=== PATIENT | male | born 1945 | race Caucasian/White ===

== ENCOUNTER 2016-09-03 12:38 | Inpatient (IN) | payer OTHER, MEDICARE ==
[2016-09-03] VITALS (10 sets, daily range): BP systolic 50–129; BP diastolic 28–90; PULSE 40–108; RESP 16–28; TEMP 93.5–97.2; O2SAT 0–100
[~2016-09-03] VITALS: Ht 175.3 cm; Wt 95.0 kg
[~2016-09-03 12:38] MED LIST: DOPamine INJ PREMIX 500 ML IV ONE; EPINEPHrine HCL (1:10,000) 1 MG/10 ML SYRINGE IV ONE
[2016-09-03] MEDS ORDERED: ASPIRIN 300 MG SUPP RECTAL ONE ×2 (12:42→13:00)
[2016-09-03] MEDS ORDERED: ATROPINE SULFATE 1 MG/ML VIAL ONE (12:42)
[2016-09-03] MEDS ORDERED: PHENYLEPHRINE HCL 10 MG/ML VIAL ONE ×2 (12:46→12:49)
[2016-09-03] MEDS ORDERED: PHENYLEPH/NS 1000 MCG/10 ML SYR ONE (12:47)
[2016-09-03] MEDS ORDERED: HEPARIN-NS/PF INJ 500 ML ONE (12:48)
[2016-09-03] MEDS ORDERED: TIROFIBAN INFUSION INJ 250 ML IV ONE (12:49)
[2016-09-03] MEDS ORDERED: MIDAZOLAM HCL 2 MG/2 ML VIAL ONE (12:49)
[2016-09-03] MEDS ORDERED: SODIUM CHLOR 0.9% 1000 ML INJ 1,000 ML IV ONE (12:55)
[2016-09-03] MEDS ORDERED: HEPARIN SODIUM - IV 10,000 UNITS/10 ML VIAL IV STA (12:55)
[2016-09-03 12:57] LABS: MEAN CORPUSCULAR HGB CONC 28.3 % (32.0-36.0)
[2016-09-03] MEDS ORDERED: SODIUM CHLORIDE 0.9% FLUSH 10 ML FLUSH IVF PRN (13:00)
[2016-09-03] MEDS ORDERED: DOPamine INJ PREMIX 500 ML ONE ×2 (13:01→15:55)
[2016-09-03 13:06] LABS: AUTOMATED NEUTROPHIL # 9.3 TH/MM3 (1.8-7.7); BASOPHIL # 0.1 TH/MM3 (0-0.2); BASOPHIL % 0.5 % (0.0-2.0); LYMPH % 20.5 % (9.0-44.0); LYMPHOCYTE # 2.6 TH/MM3 (1.0-4.8); MEAN CELL VOLUME 90.6 FL (80.0-100.0); MEAN CORPUSCULAR HEMOGLOBIN 25.6 PG (27.0-34.0); MONO % 6.4 % (0.0-8.0); NEUT % 72.6 % (16.0-70.0); PLATELET COUNT 242 TH/MM3 (150-450); RED BLOOD COUNT 1.35 MIL/MM3 (4.50-5.90); RED CELL DISTRIBUTION WIDTH 18.3 % (11.6-17.2); WHITE BLOOD COUNT 12.9 TH/MM3 (4.0-11.0)
[2016-09-03 13:08] LABS: HEMO FLAGS AUTO DIFF; I-STAT POTASSIUM 3.8 MMOL/L (3.5-4.9); I-STAT SODIUM 142 MMOL/L (138-146)
[2016-09-03 13:10] LABS: HEMATOCRIT 12.2 % (39.0-51.0)
[2016-09-03] MEDS ORDERED: EPINEPHrine HCL (1:1000) 1 MG/ML VIAL ONE ×2 (13:13→16:18)
[2016-09-03 13:16] LABS: APTT (PATIENT) 41.4 SEC (24.3-30.1); INTERNATIONAL NORMALIZED RATIO 1.1 RATIO; PROTHROMBIN TIME - PATIENT 12.7 SEC (9.8-11.6)
--- NOTE | 2016-09-03 13:29 | CATHPROC ---
[facility] HIS Report Study Information Study Number Admission Scheduled Start Study Start 0850-17 09/03/2016 09/03/2016 Sep 03 2016 12:50PM Study Type [place] [facility]CA Cardiac Catheterization Referring Institution Admit Source Facility Department 1 Emergency department [facility] - Oracle Developer Physician and Clinical Staff Initial Anival Mcgee Night Patrol Inspector Bob Becerril,RN Recorder Danita Hinojosa,RT(R) Scrub Audrey Merino,PLAQUE MAKER TECH2 Equipment Time Hplc Chemist Description Size Mfg Part Number Used/Scraped TRANSDUCER, TRUWAVE 12:56 KUO MONTENEGRO * [id number] Used W/STOCKCOCK 12:56 MEDLINE [employer] PACK, CCL CUSTOM * [id number] Used 12:56 RV ID PACER PEN, SKIN DUAL W/ RULER * [id number] Used [id number] 12:56 POWWOW MEDICAL SHEATH, FR6.5 PRELUDE 11CM FR 6.5 Used [id number] 12:56 Shoop WIRE, 3MMJ .035 180CM 180CM [id number] Used 12:56 NAMIC MANIFOLD, 4 PORT * [id number] Used 12:56 NYCOMED OMNIPAQUE, 350 MG, 100ML 100ML [id number] Used 12:56 Youmiam MEDICAL BLANKET,WARM AIR CCL * [id number] Used Labs Hgb (g/dl) Hct (%) WBC (l/cumm) Platelets (thousands) 12.00-18.00 37.00-55.00 4.80-10.80 140.00-450.00 3.4 12.2 12.9 242 Glucose (mg/dl) BUN (mg/dl) Creatinine (mg/dl) BUN:Creatinine (1:x) 60.00-110.00 8.00-20.00 0.10-9.00 10.00-20.00 303 30 1.9 15.8 Na (meq/l) K (meq/l) Cl (meq/l) 138.00-146.00 3.80-5.10 101.00-111.00 142 3.8 112 Medication Medication Total Dose (Bolus/Oral) Medication Total Dosage/Unit EPINEPHRINE 05/999 0.6 mg Medications (Bolus/Oral) Medication Time Given Dosage/Unit Administered By Reason EPINEPHRINE 05/99909/03/2016 1:06:52 PM 0.3 mg Bob Becerril 0.3 mg EPINEPHRINE 05/999 given by Bob Becerril RN via Peripheral IV. EPINEPHRINE 05/999 09/03/2016 1:10:28 PM 0.3 mg Bob Becerril 0.3 mg EPINEPHRINE 05/999 given by Bob Becerril RN via Peripheral IV. Chronological Log Time Study Chronological Log 13:03:23 Patient arrived via Bed. 13:03:24 Patient Name, D.O.B, / Armband Verified By R.N. 13:03:26 Pre-op and post- op instructions given; patient acknowledges understanding of instructions. Verbal Stimulation=~VERBAL~ Physical Stimulation=~PHYSICAL~ Airway=~AIRWAY~ Respiration=~RESPIR ATION~ 13:03:26 TOTAL=~TOTAL~. (0=absent, 1=limited, 2=present) 13:03:30 Skin Breakdown. 13:03:30 Patient Warmer Placed on the Table. 13:03:31 Disposable Defibrillator Pads Placed On Patient. 13:03:33 A # 20 IV was noted in the Antecubital (right). Grade = 0 13:03:35 A # ~SIZE~ IV was noted in the Radial (right). Grade = 0 SALOMÓN 13:03:45 DOPAMINE STARTED WIDE OPENED 13:06:24 CPR STARTED 13:06:52 0.3 mg EPINEPHRINE 05/999 given by Bob Becerril RN via Peripheral IV. 13:07:04 PT ARRIVED INTUBATED 13:07:18 CPR continues 13:07:40 SALOMÓN CONNECTED 13:07:49 CPR stopped 13:07:52 PT HAS PULSE Vitals capture started with the following parameters, Patient=Adult, Interval=5 min, Initial Pr avubli=550 mmHg, 13:08:24 Deflation Rate=5 mmHg 13:09:55 HR=56 bpm, UKOX=907/52 mmhg, Resp=13 B/min 13::28 0.3 mg EPINEPHRINE 05/999 given by Bob Becerril RN via Peripheral IV. 13:11:13 Vitals capture stopped. Vitals capture started with the following parameters, Patient=Adult, Interval=5 min, Initial Pr aoivph=649 mmHg, ::25 Deflation Rate=5 mmHg 13::27 NIBP STAT measurement started. 13:12:29 HR=41 bpm, NIBP=91/43 mmhg, Resp=27 B/min, Pato=1 13:12:50 LAB VALUES HEMOGLOBIN 3.4 CREATININE 1.9 13:15:02 NIBP STAT measurement started. 13:15:34 Reference ECG taken 13:16:08 RU=721 bpm, NIBP=96/74 mmhg, Resp=31 B/min, Pato=1 PT LEAVING BLADE BENDER FURNACE TENDER 13:16:53 GOING BACK TO ER DECISION MADE BY ER PHYSICIAN (DR STEWART) AND DR RAMOS 13:17:38 JLIM=661/129 mmhg, SpO2=76.0 %, Pato=1, Camacho=6 13:19:58 Vitals capture stopped. 13:22:41 A # 20 IV was noted in the Antecubital (right). Grade = 0 13:24:47 CASE CANCELLED-PER DR RAMOS/DR ANDREWS 13:26:17 SEE ER CODE SHEET FOR TIMES AND MEDS End Study - Contrast Media Used In Study Contrast Total Opened (mL) Total Used (mL) Total Wasted (mL) Unspecified 0 0 0 End Study - Maximum Contrast Load Max Contrast Load (mL) 179.4 End Study - Radiation Exposure Fluoro Time (minutes) 0.0 End Study - Patient Disposition Complications No
[2016-09-03 13:39] LABS: BANDS 3 % (0-6); CORRECTED NUCLEATED RBC 4 /100 WBC (0-0); METAMYELOCYTES 1 % (0-1); MYELOCYTES 2 % (0-0); NEUTROPHIL # MANUAL DIFF 10.1 TH/MM3 (1.8-7.7); POLYS (SEG NEUTROPHILS) 72 % (16-70); WBC DIFF SAMPLE 100
[2016-09-03 13:41] LABS: BURR CELLS 1+ (NORMAL); KERATOCYTES OCC (NORMAL); MAGNESIUM 2.9 MG/DL (1.5-2.5); PLATELET ESTIMATE SMEAR NORMAL (NORMAL); PLATELET MORPHOLOGY NORMAL (NORMAL); SCAN/DIFF FINAL DIFF MANUAL
[2016-09-03 13:42] LABS: HEMATOCRIT 12.9 % (39.0-51.0)
[2016-09-03 13:44] LABS: CREATINE KINASE 408 U/L (39-308)
--- NOTE | 2016-09-03 13:51 | RADRPT ---
EXAM DATE/TIME: 09/03/2016 12:41 [facility] COMPARISON: No previous studies available for comparison. INDICATIONS : Stemi alert. MEDICAL HISTORY : Unobtainable. SURGICAL HISTORY : Unobtainable. ENCOUNTER: Initial ACUITY: 1 day PAIN SCORE: Non-responsive. LOCATION: Bilateral chest FINDINGS: A single view of the chest demonstrates the lungs to be symmetrically aerated without evidence of mas s, infiltrate or effusion. The cardiomediastinal contours are unremarkable. Osseous structures are intact. CONCLUSION: Normal examination. Guilherme Johnson Jr., MD on September 03, 2016 at 13:49 Board Certified Radiologist. This report was verified electronically.
[2016-09-03] MEDS ORDERED: PANTOPRAZOLE INJ 80 MG in SODIUM CHLORIDE 0.9% INJ 100 ML IV SCH (14:00)
[2016-09-03] MEDS ORDERED: PANTOPRAZOLE INJ 80 MG in SODIUM CHLORIDE 0.9% INJ 35 ML IV ONE (14:00)
[2016-09-03 14:01] LABS: CKMB 7.9 NG/ML (0.5-3.6)
--- NOTE | 2016-09-03 14:20 | PD ---
HPI Chief Complaint: STEMI Alert Time Seen by Provider: 12:55 Travel History International Travel<30 days: No Contact w/Intl Traveler<30days: No Traveled to known affect area: No History of Present Illness HPI The patient is a 71-year-old male who presents to the emergency department via EMS as a STEMI alert. According to EMS the patient has been feeling poorly for the last 3-4 days with increasing generalized weakness, according to the . The patient went for a walk earlier today when he returned home the patient apparently appeared pale, dusky, diaphoretic according to the . EMS states that the patient's called EMS and when fire rescue arrived the patient had an altered mental status and then collapsed. EMS arrived and the patient was bradycardic with a heart rate in the 30s. EMS states the patient lost pulses for approximately 30 seconds, they performed CPR and regained pulses. The patient then had a GCS of 3 and was intubated without medications in the field, 7.0 endotracheal tube at 21 cm, according to EMS. The patient then did become agitated in route, and had to be sedated with etomidate and Ativan and placed in soft restraints. Upon arrival the patient was intubated, nonverbal, and not moving any extremities. EMS states they performed an EKG in the field which revealed ST elevations in 2, 3, and aVF consistent with an inferior myocardial infarction and a STEMI alert was called prior to arrival by EMS. EMS states the patient takes no medications, has no known medical problems, and recently moved to the area. [facility] Past Medical History Medical History: Unable to Obtain Past Surgical History Surgical History: Unable to Obtain Social History Tobacco Use: No (unable to be obtained) Allergies-Medications (Allergen,Severity, Reaction): Coded Allergies: No Known Allergies (Unverified , 09/03/16) Review of Systems ROS Limitations: Intubated Except as stated in HPI: all other systems reviewed are Neg Physical Exam Exam Limitations: Clinical Condition Narrative GENERAL: 71-year-old male appears pale, dusky, with cool extremities and is intubated. GCS 3. SKIN: Focused skin assessment pale and dusky. HEAD: Atraumatic. Normocephalic. EYES: Pupils equal and round. 2 mm bilateral slow to react. ENT: Endotracheal tube in place. NECK: Trachea midline. No JVD. CARDIOVASCULAR: Regular, bradycardic with a heart rate in the 30s. RESPIRATORY: Bilateral breath sounds with bag valve ventilation via endotracheal tube. GASTROINTESTINAL: Abdomen soft, non-tender, nondistended. No rebound tenderness. Rectal: Black, grossly guaiac positive. MUSCULOSKELETAL: No obvious deformities. No clubbing. No cyanosis. No edema. NEUROLOGICAL: GCS of 3. Not moving any extremities. PSYCHIATRIC: Unable to assess. Data Data Orders Atropine Inj (Atropine Inj) (09/03/16 12:42) Aspirin Supp (Aspirin Supp) (09/03/16 12:42) Phenylephrine Inj (Neosynephrine Inj) (09/03/16 12:46) Phenyleph/Ns 1000 Mcg/10ml Syr (Neosynep (09/03/16 12:47) Heparin-Ns/Pf Inj (Heparin-Ns/Pf Inj) (09/03/16 12:48) Phenylephrine Inj (Neosynephrine Inj) (09/03/16 12:49) Midazolam Inj (Versed Inj) (09/03/16 12:49) Fentanyl Inj (Fentanyl Inj) (09/03/16 12:49) Tirofiban Infusion Inj (Aggrastat Infusi (09/03/16 12:49) Chest, Single Ap (09/03/16 ) Troponin I (09/03/16 12:55) Ckmb (Isoenzyme) Profile (09/03/16 12:55) Complete Blood Count With Diff (09/03/16 12:55) I-Stat Profile (09/03/16 12:55) I-Stat Creatinine (09/03/16 12:55) Calcium (09/03/16 12:55) Magnesium (Mg) (09/03/16 12:55) Prothrombin Time / Inr (Pt) (09/03/16 12:55) Act Partial Throm Time (Ptt) (09/03/16 12:55) B-Type Natriuretic Peptide (09/03/16 12:55) Electrocardiogram (09/03/16 12:55) Oxygen Administration (09/03/16 12:55) Iv Access Insert/Monitor (09/03/16 12:55) Oximetry (09/03/16 12:55) Sodium Chlor 0.9% 1000 Ml Inj (Ns 1000 M (09/03/16 12:55) Sodium Chloride 0.9% Flush (Ns Flush) (09/03/16 13:00) Heparin Inj (Heparin Inj) (09/03/16 12:55) Aspirin Supp (Aspirin Supp) (09/03/16 13:00) Dopamine Inj Premix (Dopamine Inj Premix (09/03/16 13:01) Epinephrine (1:1000) Inj (Adrenalin (1:1 (09/03/16 13:13) Type And Screen (09/03/16 13:20) Hematocrit (Hct) (09/03/16 13:25) Hemoglobin (Hgb) (09/03/16 13:25) Red Blood Cells (Rbc) (09/03/16 12:48) CKMB (09/03/16 12:48) CKMB% (09/03/16 12:48) Labs Laboratory Tests Test 09/03/16 09/03/16 12:48 13:18 White Blood Count 12.9 TH/MM3 Red Blood Count 1.35 MIL/MM3 Hemoglobin 3.4 GM/DL 3.4 GM/DL Bedside Hemoglobin G/DL Hematocrit 12.2 % 12.9 % Bedside Hematocrit % Mean Corpuscular Volume 90.6 FL Mean Corpuscular Hemoglobin 25.6 PG Mean Corpuscular Hemoglobin 28.3 % Concent Red Cell Distribution Width 18.3 % Platelet Count 242 TH/MM3 Mean Platelet Volume 8.7 FL Neutrophils (%) (Auto) 72.6 % Lymphocytes (%) (Auto) 20.5 % Monocytes (%) (Auto) 6.4 % Eosinophils (%) (Auto) 0.0 % Basophils (%) (Auto) 0.5 % Neutrophils # (Auto) 9.3 TH/MM3 Lymphocytes # (Auto) 2.6 TH/MM3 Monocytes # (Auto) 0.8 TH/MM3 Eosinophils # (Auto) 0.0 TH/MM3 Basophils # (Auto) 0.1 TH/MM3 CBC Comment AUTO DIFF Differential Total Cells 100 Counted Neutrophils % (Manual) 72 % Band Neutrophils % 3 % Lymphocytes % 20 % Monocytes % 2 % Neutrophils # (Manual) 10.1 TH/MM3 Metamyelocytes 1 % Myelocytes 2 % Nucleated Red Blood Cells 4 /100 WBC Differential Comment FINAL DIFF MANUAL Platelet Estimate NORMAL Platelet Morphology Comment NORMAL [place] Cells 1+ Keratocytes OCC Prothrombin Time 12.7 SEC Prothromb Time International 1.1 RATIO Ratio Activated Partial 41.4 SEC Thromboplast Time Bedside Sodium 142 MMOL/L Bedside Potassium 3.8 MMOL/L Bedside Chloride 112 MMOL/L Bedside Blood Urea Nitrogen 30 MG/DL Bedside Creatinine 1.9 MG/DL Bedside Glucose 303 MG/DL Calcium Level 7.9 MG/DL Magnesium Level 2.9 MG/DL Total Creatine Kinase 408 U/L Creatine Kinase MB 7.9 NG/ML Creatine Kinase MB % 1.9 % Troponin I 1.74 NG/ML B-Type Natriuretic Peptide 395 PG/ML Blood Type A POSITIVE A POSITIVE Antibody Screen NEGATIVE Crossmatch Leukocyte-Reduced Red Blood Cells Blood Bank Comment [facility] Medical Decision Making Medical Screen Exam Complete: Yes Emergency Medical Condition: Yes Medical Record Reviewed: Yes Interpretation(s) Laboratory Tests Test 09/03/16 09/03/16 12:48 13:18 White Blood Count 12.9 TH/MM3 Red Blood Count 1.35 MIL/MM3 Hemoglobin 3.4 GM/DL 3.4 GM/DL Bedside Hemoglobin G/DL Hematocrit 12.2 % 12.9 % Bedside Hematocrit % Mean Corpuscular Volume 90.6 FL Mean Corpuscular Hemoglobin 25.6 PG Mean Corpuscular Hemoglobin 28.3 % Concent Red Cell Distribution Width 18.3 % Platelet Count 242 TH/MM3 Mean Platelet Volume 8.7 FL Neutrophils (%) (Auto) 72.6 % Lymphocytes (%) (Auto) 20.5 % Monocytes (%) (Auto) 6.4 % Eosinophils (%) (Auto) 0.0 % Basophils (%) (Auto) 0.5 % Neutrophils # (Auto) 9.3 TH/MM3 Lymphocytes # (Auto) 2.6 TH/MM3 Monocytes # (Auto) 0.8 TH/MM3 Eosinophils # (Auto) 0.0 TH/MM3 Basophils # (Auto) 0.1 TH/MM3 CBC Comment AUTO DIFF Differential Total Cells 100 Counted Neutrophils % (Manual) 72 % Band Neutrophils % 3 % Lymphocytes % 20 % Monocytes % 2 % Neutrophils # (Manual) 10.1 TH/MM3 Metamyelocytes 1 % Myelocytes 2 % Nucleated Red Blood Cells 4 /100 WBC Differential Comment FINAL DIFF MANUAL Platelet Estimate NORMAL Platelet Morphology Comment NORMAL [place] Cells 1+ Keratocytes OCC Prothrombin Time 12.7 SEC Prothromb Time International 1.1 RATIO Ratio Activated Partial 41.4 SEC Thromboplast Time Bedside Sodium 142 MMOL/L Bedside Potassium 3.8 MMOL/L Bedside Chloride 112 MMOL/L Bedside Blood Urea Nitrogen 30 MG/DL Bedside Creatinine 1.9 MG/DL Bedside Glucose 303 MG/DL Calcium Level 7.9 MG/DL Magnesium Level 2.9 MG/DL Total Creatine Kinase 408 U/L Creatine Kinase MB 7.9 NG/ML Creatine Kinase MB % 1.9 % Troponin I 1.74 NG/ML B-Type Natriuretic Peptide 395 PG/ML Blood Type A POSITIVE A POSITIVE Antibody Screen NEGATIVE Crossmatch Leukocyte-Reduced Red Blood Cells Blood Bank Comment Differential Diagnosis Differential diagnosis includes STEMI, aortic dissection, electrolyte abnormality, symptomatic anemia, GI bleed, drug overdose. Narrative Course IV was established, labs are drawn and sent, the patient was placed on cardiac telemetry monitoring and continuous pulse oximetry monitoring. The patient was intubated in the field by EMS, had bilateral breath sounds via bag valve ventilation. The patient was noted to be bradycardic on the monitor with a heart rate in the 30s, palpable pulse, but diminished. EKG was done stat, reveals ST elevations in 2, 3, and aVF with reciprocal changes in 1 and aVL. A STEMI alert was called and I discussed the patient with Dr. Ghosh, the on-call perianesthesia rn. The patient was administered aspirin rectally and administer 1 heparin bolus. The patient was noted be bradycardic and hypotensive, dopamine was started and the patient was given several patches of phenylephrine IV. A right radial art line was placed to evaluate the patient's hypotension. The patient was bradycardic, lost pulses, and CPR was instituted, epinephrine 1 mg intravenously was placed, and the patient regained pulses via Doppler pulse. The patient was taken to the cardiac catheterization lab, however, once the cardiac catheterization lab it was noted his hemoglobin was 3.4 and creatinine was 1.9. The patient appears to have symptomatic anemia with secondary myocardial infarction in May be bradycardic secondary to RCA involvement/SA involvement from LA in fact in the RCA. I discussed the patient with the perianesthesia rn, Dr. Garrido and Dr. Ghosh, I also discussed the patient with the office coordinator, Dr. Johnson. No immediate intensive care beds were open, therefore, the patient was brought back to the emergency department and resuscitated. 8.5 Cordis was placed in a right IJ under ultrasound guidance and the patient was administered 4 units of emergency release blood. The patient continued to be bradycardic in the 30s on dopamine, therefore, was transcutaneously paced with a rate of 60. The patient's blood pressure improved with a systolic in the 70s and 80s. I discussed the patient with the on-call experimental mechanic, Dr. Barrios. The patient was administered Protonix bolus and placed on a Protonix drip. I discussed the patient with the office coordinator, Dr. Johnson, as agreed the patient have a CT of the thorax/abdomen/pelvis to evaluate for any possible intrathoracic or intra-abdominal hemorrhage. The patient will be admitted to the intensive care unit. Patient is critical. Critical Care Narrative Aggregate critical care time was 90 minutes. Time to perform other separately billable procedures was not included in the critical care time. My time did not include minutes spent treating any other patients simultaneously or on activities that did not directly contribute to the patient's treatment. The services I provided to this patient were to treat and/or prevent clinically significant deterioration that could result in: Anoxia, hypoxia, aspiration, arrhythmia, hypotension, hemorrhagic shock, . I provided critical care services requiring my management, as noted below: Chart data review, documentation time, medication orders and management, vital sign assessments/reviewing monitor data, ordering and reviewing lab tests, ordering and interpreting/reviewing x-rays and diagnostic studies, care of the patient and discussion of the patient with the admitting physicians. Procedures Procedure Narrative CENTRAL VENOUS LINE: The site was prepped with Betadine and sterilely draped. It was infiltrated with 1% lidocaine plain. The deep vein was cannulated using normal Seldinger technique under ultrasound guidance using a linear probe, a central line was placed in the right internal jugular site and secured with simple interrupted suture. The site was sterilely dressed. The patient tolerated the procedure well. I placed a radial arterial line in the right radial artery under ultrasound guidance using a linear probe. The patient tolerated the procedure without difficulty and there was no obvious complications. Transthoracic pacer for the indication of bradycardia with hypotension. Pads for transthoracic pacing were placed on the chest. Pacing was begun at 60 with mechanical capture of 60. Physician Communication Physician Communication I discussed the patient with the on-call office coordinator, experimental mechanic, and perianesthesia rn. The patient will be admitted to the intensive care unit. Diagnosis Primary Impression: GI bleed requiring more than 4 units of blood in 24 hours, ICU, or surgery Additional Impressions: ST elevation (STEMI) myocardial infarction Qualified Code: I21.3 - ST elevation myocardial infarction (STEMI), unspecified artery Bradycardia Admitting Information Admitting Physician Requests: Admit Condition: Critical Eddy Mccoy MD September 03, 2016 14:20 Bradycardia Admitting Information Admitting Physician Requests: Admit Condition: Critical Eddy Mccoy MD September 03, 2016 14:20
[2016-09-03] MEDS ORDERED: IODIXANOL 320 MG/ML 10 ML VIAL (for Rad CT) IV ONE (14:50)
--- NOTE | 2016-09-03 14:51 | RADRPT ---
EXAM DATE/TIME: 09/03/2016 14:18 [facility] COMPARISON: No previous studies available for comparison. INDICATIONS : Stemi alert, altered mental status. RADIATION DOSE: 51.06 CTDIvol (mGy) MEDICAL HISTORY : Non-responsive. SURGICAL HISTORY : Non-responsive. ENCOUNTER: Initial ACUITY: 1 day PAIN SCALE: Non-responsive LOCATION: cranial TECHNIQUE: Multiple contiguous axial images were obtained of the head. Using automated exposure control and adj ustment of the mA and/or kV according to patient size, radiation dose was kept as low as reasonably a chievable to obtain optimal diagnostic quality images. FINDINGS: CEREBRUM: The ventricles are normal for age. No evidence of midline shift, mass lesion, hemorrhage or acute in farction. No extra-axial fluid collections are seen. POSTERIOR FOSSA: The cerebellum and brainstem are intact. The 4th ventricle is midline. The cerebellopontine angle i s unremarkable. EXTRACRANIAL: The visualized portion of the orbits is intact. Layering fluid in the maxillary sinuses. SKULL: The calvaria is intact. No evidence of skull fracture. CONCLUSION: No acute intracranial findings Dion Byers MD on September 03, 2016 at 14:47 Board Certified Radiologist. This report was verified electronically.
--- NOTE | 2016-09-03 14:55 | RADRPT ---
EXAM DATE/TIME: 09/03/2016 14:22 [facility] COMPARISON: No previous studies available for comparison. INDICATIONS : Stemi alert, low hemoglobin. Evaluate for bleed. IV CONTRAST: 45 cc Visipaque (iodixanol) IV ; Cumulative dose for multiple exams. RADIATION DOSE: 19.52 CTDIvol (mGy) ; Combined studies - Thorax/Abdomen/Pelvis MEDICAL HISTORY : Non-responsive. SURGICAL HISTORY : Non-responsive. ENCOUNTER: Initial ACUITY: 1 day PAIN SCALE: Non-responsive LOCATION: cranial TECHNIQUE: Volumetric scanning of the chest was performed. Using automated exposure control and adjustment of t he mA and/or kV according to patient size, radiation dose was kept as low as reasonably achievable to obtain optimal diagnostic quality images. FINDINGS: LUNGS: There is no consolidation or pneumothorax. No concerning pulmonary nodule is visualized. PLEURA: There is no pleural thickening or pleural effusion. MEDIASTINUM: There is a small hiatal hernia. No evidence of mediastinal mass, adenopathy or hematoma. Dense vaughn ry calcifications are present. AXILLAE: Within normal limits. No lymphadenopathy. SKELETAL: Within normal limits for patient age. MISCELLANEOUS: The visualized upper abdominal organs demonstrate no acute abnormality. CONCLUSION: No acute CT findings in the chest Dion Byers MD on September 03, 2016 at 14:50 Board Certified Radiologist. This report was verified electronically.
--- NOTE | 2016-09-03 15:03 | RADRPT ---
EXAM DATE/TIME: 09/03/2016 14:22 [facility] COMPARISON: No previous studies available for comparison. INDICATIONS : Stemi alert, low hemoglobin. Evaluate for bleed. IV CONTRAST: 45 cc Visipaque (iodixanol) IV ; Cumulative dose for multiple exams. ORAL CONTRAST: No oral contrast ingested. RADIATION DOSE: 19.52 CTDIvol (mGy) ; Combined studies - Thorax/Abdomen/Pelvis MEDICAL HISTORY : Non-responsive. SURGICAL HISTORY : Non-responsive. ENCOUNTER: Initial ACUITY: 1 day PAIN SCALE: Non-responsive LOCATION: abdomen TECHNIQUE: Volumetric scanning of the abdomen and pelvis was performed. Using automated exposure control and ad justment of the mA and/or kV according to patient size, radiation dose was kept as low as reasonably achievable to obtain optimal diagnostic quality images. FINDINGS: LOWER LUNGS: The visualized lower lungs are clear. LIVER: There are couple small low density areas in the liver, likely cysts including a tiny lesion in the le ft lobe and a 19 mm lesion in the central right lobe. There is no evidence of biliary ductal dilatati on. SPLEEN: Normal size without lesion. PANCREAS: Within normal limits. KIDNEYS: Normal in size and shape. There is no mass, stone or hydronephrosis. ADRENAL GLANDS: Within normal limits. VASCULAR: There is no aortic aneurysm. BOWEL/MESENTERY: The stomach, small bowel, and colon demonstrate no acute abnormality. There is no free intraperitone al air or fluid. ABDOMINAL WALL: Within normal limits. RETROPERITONEUM: There is no lymphadenopathy, mass or hematoma. BLADDER: No wall thickening or mass. REPRODUCTIVE: Within normal limits. INGUINAL: There is no lymphadenopathy or hernia. MUSCULOSKELETAL: Within normal limits for patient age. CONCLUSION: No acute CT findings in the abdomen or pelvis. Small liver lesions likely benign. Dion Byers MD on September 03, 2016 at 14:56 Board Certified Radiologist. This report was verified electronically.
[2016-09-03 15:22] LABS: BLOOD GAS BASE EXCESS -25.4 mmol/L (-2-2); BLOOD GAS HCO3 5 mmol/L (22-26); BLOOD GAS METHEMOGLOBIN 0.6 % (0-2); BLOOD GAS O2 HGB SATURATION 99 % (90-100); BLOOD GAS OXYGEN CONTENT 11.9 Vol % (12.0-20.0); BLOOD GAS PCO2 28 mmHg (38-42); BLOOD GAS PO2 493 mmHG (61-120); BLOOD GAS TOTAL HGB 7.7 G/DL (12.0-16.0); TEMP CORR TO 98.6
[2016-09-03 15:23] LABS: CRITICAL VALUE YES; DRAW SITE ALINE; OXYGEN DEVICE VENTILATOR; STAT YES
[2016-09-03] MEDS ORDERED: RESP: ALBUTEROL 2.5 MG/3 ML NEB (PRN) INH (15:30)
[2016-09-03] MEDS ORDERED: fentaNYL DRIP 250 ML IV SCH (15:30)
[2016-09-03] MEDS ORDERED: SENNOSIDES SYRUP 8.8 MG/5 ML CUP G-TUBE PRN (15:30)
[2016-09-03] MEDS ORDERED: DEXTROSE 50% IN WATER 50 ML VIAL(D50) IV PUSH PRN (15:30)
[2016-09-03] MEDS ORDERED: SODIUM CHLORIDE 0.9% FLUSH 10 ML FLUSH IV FLUSH PRN (15:30)
[2016-09-03] MEDS ORDERED: MISCELLANEOUS NURSING INFORMATION XX SCH (15:30)
[2016-09-03] MEDS ORDERED: ONDANSETRON HCL 4 MG/2 ML VIAL IV PRN (15:30)
[2016-09-03] MEDS ORDERED: ACETAMINOPHEN 325 MG TAB PO PRN (15:30)
[2016-09-03] MEDS ORDERED: GLUCAGON 1 MG/ML VIAL OTHER PRN ×2 (15:30)
[2016-09-03] MEDS ORDERED: TERBUTALINE INJ 1 MG/ML AMP SQ PRN (15:30)
[2016-09-03] MEDS ORDERED: CHLORHEXIDINE GLUCONATE 2 % 1 PACK (2 CLOTHS) TOP PRN (15:30)
[2016-09-03] MEDS ORDERED: MIDAZOLAM HCL 5 MG/ML VIAL (1 ML) IV PUSH ONE (15:45)
--- NOTE | 2016-09-03 15:47 | PD.CONS ---
HPI History of Present Illness This is a 71 year old [gentleman] who arrived by ambulance after his called 911 b/c he told her he was having trouble breathing and felt like he was going to after getting back from walking the dog. He was found to be having NV. Per he had been feeling sick for a week and denied any pain but would just say he felt dizzy and tired. He has been taking a few aspirin daily for the last few days but she is not sure why. He has also been takign more tums and zantac than usual but did not complain of any specific issue. He is unaware of black stools, red blood in stool or nausea. She said he did throw up once a few days ago but doesn't think there was blood in it. No significant medical history, she says he never went to the doctor. Never had colonoscopy or EGD. She says he had no prior heart issues. (Charley Johnston) PFSH Past Medical History heartburn Past Surgical History knee surgery (Charley Johnston) Coded Allergies: No Known Allergies (Unverified , 09/03/16) Medications Current Medications Medications (Trade) Dose Ordered Sig/Renée Route PRN Reason Start Time Stop Time Status Last Admin Dose Admin Sodium Chloride 2 ml 2 ml UNSCH PRN IVF FLUSH AFTER USING IV ACCESS 09/03/16 13:00 Pantoprazole Sodium 80 mg/ Sodium Chloride 100 ml @ 10 mls/hr CONTINUOUS IV 09/03/16 14:00 Sodium Chloride (NS 1000 ml Inj) 1,000 ml @ 84 mls/hr [id number] IV 09/03/16 16:00 Sodium Chloride (NS Flush) 2 ml UNSCH PRN IV FLUSH FLUSH AFTER USING IV ACCESS 09/03/16 15:30 Sodium Chloride (NS Flush) 2 ml BID IV FLUSH 09/03/16 21:00 Acetaminophen (Tylenol) 650 mg Q6H PRN PO PAIN 1-10 AND/OR FEVER >101F 09/03/16 15:30 UNV Artificial Tears (Tears Naturale Opth Soln) 1 drop TID EACH EYE 09/03/16 18:00 Ondansetron HCl (Zofran Inj) 4 mg Q6H PRN IV NAUSEA OR VOMITING 09/03/16 15:30 Docusate Sodium (Colace Liq) 100 mg Q12H G-TUBE 09/03/16 16:00 Sennosides (Senna Liq) 17.6 mg Q12H PRN G-TUBE CONSTIPATION 09/03/16 15:30 Miscellaneous Information 1 Q361D XX 09/03/16 15:30 Chlorhexidine Gluconate (Chlorhexidine 2% Cloth) 3 pack Taper DAILY@04 TOP 09/04/16 04:00 08/31/17 03:59 Chlorhexidine Gluconate 3 pack 3 pack UNSCH PRN TOP HYGIENIC CARE 09/03/16 15:30 Propofol 100 ml @ 0 mls/hr TITRATE IV 09/03/16 15:30 Fentanyl Citrate (fentaNYL DRIP) 250 ml @ 0 mls/hr TITRATE IV 09/03/16 15:30 Dextrose (D50w (Vial) Inj) 25 ml UNSCH PRN IV PUSH HYPOGLYCEMIA-SEE COMMENTS 09/03/16 15:30 Glucagon (Glucagon Inj) 1 mg UNSCH PRN OTHER HYPOGLYCEMIA-SEE COMMENTS 09/03/16 15:30 Dextrose (D50w (Vial) Inj) 25 ml UNSCH PRN IV PUSH HYPOGLYCEMIA-SEE COMMENTS 09/03/16 15:30 Glucagon (Glucagon Inj) 1 mg UNSCH PRN OTHER HYPOGLYCEMIA-SEE COMMENTS 09/03/16 15:30 Insulin Human Regular (NovoLIN R SUPPLEMENTAL SCALE) 1 Q6HR SQ 09/03/16 18:00 Terbutaline Sulfate 1 mg 1 mg UNSCH PRN SQ For Extravasation 09/03/16 15:30 UNV Dopamine HCl 1600 mg/Dextrose 250 ml @ 2.25 mls/hr TITRATE IV 09/03/16 15:30 UNV Epinephrine HCl/ Dextrose (Adrenalin (1:1000) Inj/D5W Inj) 250 ml @ 22.5 mls/hr TITRATE IV 09/03/16 17:30 UNV Sodium Bicarbonate 100 meq 100 meq ONCE ONCE IV PUSH 09/03/16 15:30 09/03/16 15:31 UNV Sodium Bicarbonate/ Sterile Water (Sodium Bicarbonate 8.4% Inj/Sterile Water For Inj) 1,000 ml @ 150 mls/hr Q6H40M IV 09/03/16 15:30 UNV Family History unk Social History no ETOH, tobacco, illicit drugs (Charley Johnston) Review of Systems ROS unable to obtain (Charley Johnston [facility]) GI Exam Vitals I&O Vital Signs Date Time Temp Pulse Resp B/P Pulse Ox O2 Delivery O2 Flow Rate FiO2 09/03/16 14:51 97.2 40 16 51/28 96 Imaging Last Impressions Head CT 09/03/16 0000 Signed Impressions: Service Date/Time: Saturday, September 03, 2016 14:18 - CONCLUSION: No acute intracranial findings Dion Byers MD Chest X-Ray 09/03/16 0000 Signed Impressions: Service Date/Time: Saturday, September 03, 2016 12:41 - CONCLUSION: Normal examination. Guilherme Johnson Jr., MD Chest CT 09/03/16 0000 Signed Impressions: Service Date/Time: Saturday, September 03, 2016 14:22 - CONCLUSION: No acute CT findings in the chest Dion Byers MD Abdomen/Pelvis CT 09/03/16 0000 Signed Impressions: Service Date/Time: Saturday, September 03, 2016 14:22 - CONCLUSION: No acute CT findings in the abdomen or pelvis. Small liver lesions likely benign. Dion Byers MD Laboratory Test 09/03/16 09/03/16 09/03/16 12:48 13:18 15:14 White Blood Count 12.9 TH/MM3 Red Blood Count 1.35 MIL/MM3 Hemoglobin 3.4 GM/DL 3.4 GM/DL Bedside Hemoglobin G/DL Hematocrit 12.2 % 12.9 % Bedside Hematocrit % Mean Corpuscular Volume 90.6 FL Mean Corpuscular Hemoglobin 25.6 PG Mean Corpuscular Hemoglobin 28.3 % Concent Red Cell Distribution Width 18.3 % Platelet Count 242 TH/MM3 Mean Platelet Volume 8.7 FL Neutrophils (%) (Auto) 72.6 % Lymphocytes (%) (Auto) 20.5 % Monocytes (%) (Auto) 6.4 % Eosinophils (%) (Auto) 0.0 % Basophils (%) (Auto) 0.5 % Neutrophils # (Auto) 9.3 TH/MM3 Lymphocytes # (Auto) 2.6 TH/MM3 Monocytes # (Auto) 0.8 TH/MM3 Eosinophils # (Auto) 0.0 TH/MM3 Basophils # (Auto) 0.1 TH/MM3 CBC Comment AUTO DIFF Differential Total Cells 100 Counted Neutrophils % (Manual) 72 % Band Neutrophils % 3 % Lymphocytes % 20 % Monocytes % 2 % Neutrophils # (Manual) 10.1 TH/MM3 Metamyelocytes 1 % Myelocytes 2 % Nucleated Red Blood Cells 4 /100 WBC Differential Comment FINAL DIFF MANUAL Platelet Estimate NORMAL Platelet Morphology Comment NORMAL [place] Cells 1+ Keratocytes OCC Prothrombin Time 12.7 SEC Prothromb Time International 1.1 RATIO Ratio Activated Partial 41.4 SEC Thromboplast Time Bedside Sodium 142 MMOL/L Bedside Potassium 3.8 MMOL/L Bedside Chloride 112 MMOL/L Bedside Blood Urea Nitrogen 30 MG/DL Bedside Creatinine 1.9 MG/DL Bedside Glucose 303 MG/DL Calcium Level 7.9 MG/DL Magnesium Level 2.9 MG/DL Total Creatine Kinase 408 U/L Creatine Kinase MB 7.9 NG/ML Creatine Kinase MB % 1.9 % Troponin I 1.74 NG/ML B-Type Natriuretic Peptide 395 PG/ML Blood Type A POSITIVE A POSITIVE Antibody Screen NEGATIVE Crossmatch Leukocyte-Reduced Red Blood Cells Blood Bank Comment Blood Gas Puncture Site SALOMÓN Blood Gas Patient Temperature 98.6 Blood Gas HCO3 5 mmol/L Blood Gas Base Excess -25.4 mmol/L Blood Gas Oxygen Saturation 99 % Arterial Blood pH 6.87 Arterial Blood Partial 28 mmHg Pressure CO2 Arterial Blood Partial 493 mmHG Pressure O2 Arterial Blood Oxygen Content 11.9 Vol % Arterial Blood 0.0 % Carboxyhemoglobin Arterial Blood Methemoglobin 0.6 % Blood Gas Hemoglobin 7.7 G/DL Oxygen Delivery Device VENTILATOR Blood Gas Ventilator Setting AC16/500/8/100 Physical Examination HEENT: pt intubated CHEST: CTA CARDIAC: paced ABDOMEN: Soft, nondistended, nontender; no hepatosplenomegaly; bowel sounds are present in all four quadrants. EXTREMITIES: No clubbing, cyanosis, or edema. SKIN: pallor DELIVERY TABLE FEEDER: intubated (Charley Johnston) Assessment and Plan Plan ASSESSMENT - severe anemia- 3.4, 12.[address] pt passed black stool. probable bleeding ulcer. performed gastric lavage 150cc with clear return, does not appear to be actively bleeding. - STEMI - no hx heart trouble per PLAN - EGD - obtain consents - monitor HH - transfuse as needed THis pt seen by myself and Dr Barrios and this note is written on his behalf ( Vickie,Charley S CIDER MAKER) Physician Comments Seen and examined with CIDER MAKER, gi bleed complicated by acute NV. Pt. received heaprin and ASA in the er per cardiac protocol. CT abd/pelvis unremarkable. NG lavage at bedside didnot reveal any red blood in NG. NO melena or hematochezia documented. On maximal pressors, undergoing emergent bedside transvenous pacing. Emergent egd planned once pt. stabilized by salt lifter. Over all appears terminally ill. Discussed with / Hema/Melissa and family. ( Travis Barrios MD) Charley Johnston September 03, 2016 15:47 Travis Barrios MD September 03, 2016 16:41
--- NOTE | 2016-09-03 15:49 | HHI.HP ---
[facility] Service Critical Care Medicine Primary Care Physician Unknown Admission Diagnosis severe symptomatic GI bleed, STEMI, bradycardia Diagnosis: (1) Acute kidney injury Diagnosis: Principal (2) Hyperglycemia Diagnosis: Principal (3) Peptic ulcer disease Diagnosis: Principal (4) Acute blood loss anemia Diagnosis: Principal (5) Cardiogenic shock Diagnosis: Principal (6) Hypovolemic shock Diagnosis: Principal (7) Lactic acidosis Diagnosis: Principal (8) ST elevation (STEMI) myocardial infarction Diagnosis: Principal (9) GI bleed requiring more than 4 units of blood in 24 hours, ICU, or surgery Diagnosis: Principal (10) Bradycardia Diagnosis: Principal Chief Complaint: Unresponsive status post PEA arrest Travel History International Travel<30 Days: No Contact w/Intl Traveler <30 Da: No Traveled to Known Affected Are: No Sepsis Criteria SIRS Criteria (2 or more): RR > 20 or PaCO2 < 32 Criteria Outcome: Meets SIRS criteria History of Present Illness 71-year-old male. Date of admission 09/03/2016. Past medical history includes peptic ulcer disease. No information was obtained from at bedside. According to , patient has been taking 3 aspirin daily Ultram for arthritis/abdominal pain. He is also taking Zantac for indigestion he possibly might have a prior history of peptic ulcer disease in the past but she is not certain. Regardless. He showed 3-4 day history of weakness. Today patient was walking outside when he was pale fell over. EMS was called. Upon arrival patient was pulseless and PEA arrest with CPR 30 minutes. Intubated with 7.0 ET tube her airway protection due to unresponsiveness. Eventually the patient became unresponsive and needed to be restrained. Upon arrival to [facility] noted to have ST elevation in 2, 3 and aVL with physical changes in 1 and aVF. Patient was given 3 mg aspirin NE and heparin bolus. STEMI alert was called and patient taken back to label tacker with Dr. Ghosh. Patient is placed on dopamine with doses of phenylephrine intermittently. Upon arrival, patient was hypotensive and bradycardic. The patient was started on epinephrine. Patient received multiple doses epinephrine and actually coded again due to PEA for 30 seconds. Stat labs revealed hemoglobin 3.4. Creatinine 1.9 Patient was taken back to ER for stabilization. Received [address] chest abdomen pelvis revealed no acute vascular dissection. Stool grossly guaiac positive. GI was consulted Pacemaker is been placed with intermittent capture likely due to acidosis. Transfuse 60s PRBCs, 2 FFP. GI plans for upper endoscopy. On Protonix drip at 8 mg an hour after 80 milligram IV bolus Review of Systems ROS Limitations: Intubated Past Family Social History Allergies: Coded Allergies: No Known Allergies (Unverified , 09/03/16) Past Medical History Peptic ulcer disease? Past Surgical History Knee surgery unknown type Reported Medications Unknown Active Ordered Medications Reviewed in EMR Family History does not know. Social History Denies tobacco alcohol or IV drug use Physical Exam Vital Signs Vital Signs Date Time Temp Pulse Resp B/P Pulse Ox O2 Delivery O2 Flow Rate FiO2 09/03/16 14:51 97.2 40 16 51/28 96 Physical Exam GENERAL: 71-year-old male, critically ill currently orotracheally intubated and hypotensive SKIN: Cool and dry. Pale HEAD: Atraumatic. Normocephalic. EYES: Pupils equal and round about 8 mm bilaterally and slightly reactive. No scleral icterus. No injection or drainage. ENT: No nasal bleeding or discharge. Mucous membranes dry and pink. Oral fix erythema NECK: Trachea midline. No JVD. CARDIOVASCULAR: Rate. Irregular. S1, S2 no S4 without murmur RESPIRATORY: Transmitted upper airway sounds clear with suctioning. Breath sounds equal bilaterally. GASTROINTESTINAL: Abdomen soft, non-tender, nondistended. No bowel sounds are appreciated MUSCULOSKELETAL: Extremities with trace lower extremity edema. No obvious deformities. NEUROLOGICAL: Positive gag. Positive corneal reflex. Moving all 4 extremities spontaneously. Laboratory Laboratory Tests Test 09/03/16 09/03/16 12:48 13:18 White Blood Count 12.9 Red Blood Count 1.35 Hemoglobin 3.4 3.4 Bedside Hemoglobin Hematocrit 12.2 12.9 Bedside Hematocrit Mean Corpuscular Volume 90.6 Mean Corpuscular Hemoglobin 25.6 Mean Corpuscular Hemoglobin 28.3 Concent Red Cell Distribution Width 18.3 Platelet Count 242 Mean Platelet Volume 8.7 Neutrophils (%) (Auto) 72.6 Lymphocytes (%) (Auto) 20.5 Monocytes (%) (Auto) 6.4 Eosinophils (%) (Auto) 0.0 Basophils (%) (Auto) 0.5 Neutrophils # (Auto) 9.3 Lymphocytes # (Auto) 2.6 Monocytes # (Auto) 0.8 Eosinophils # (Auto) 0.0 Basophils # (Auto) 0.1 CBC Comment AUTO DIFF Differential Total Cells 100 Counted Neutrophils % (Manual) 72 Band Neutrophils % 3 Lymphocytes % 20 Monocytes % 2 Neutrophils # (Manual) 10.1 Metamyelocytes 1 Myelocytes 2 Nucleated Red Blood Cells 4 Differential Comment FINAL DIFF MANUAL Platelet Estimate NORMAL Platelet Morphology Comment NORMAL [place] Cells 1+ Keratocytes OCC Prothrombin Time 12.7 Prothromb Time International 1.1 Ratio Activated Partial 41.4 Thromboplast Time Bedside Sodium 142 Bedside Potassium 3.8 Bedside Chloride 112 Bedside Blood Urea Nitrogen 30 Bedside Creatinine 1.9 Bedside Glucose 303 Calcium Level 7.9 Magnesium Level 2.9 Total Creatine Kinase 408 Creatine Kinase MB 7.9 Creatine Kinase MB % 1.9 Troponin I 1.74 B-Type Natriuretic Peptide 395 Blood Type A POSITIVE A POSITIVE Antibody Screen NEGATIVE Crossmatch Leukocyte-Reduced Red Blood Cells Blood Bank Comment Result Diagram: 09/03/16 1318 Imaging Last Impressions Head CT 09/03/16 0000 Signed Impressions: Service Date/Time: Saturday, September 03, 2016 14:18 - CONCLUSION: No acute intracranial findings Dion Byers MD Chest X-Ray 09/03/16 0000 Signed Impressions: Service Date/Time: Saturday, September 03, 2016 12:41 - CONCLUSION: Normal examination. Guilherme Johnson Jr., MD Chest CT 09/03/16 0000 Signed Impressions: Service Date/Time: Saturday, September 03, 2016 14:22 - CONCLUSION: No acute CT findings in the chest Dion Byers MD Abdomen/Pelvis CT 09/03/16 0000 Signed Impressions: Service Date/Time: Saturday, September 03, 2016 14:22 - CONCLUSION: No acute CT findings in the abdomen or pelvis. Small liver lesions likely benign. Dion Byers MD Assessment and Plan Assessment and Plan Neuro/Psych: Patient is currently on propofol/fentanyl drips for sedation/analgesia while intubated Goal of RA SS -2 Daily sedation vacation when appropriate Patient is currently sponges and moving upper and lower extremities CV: Acute inferior STEMI Severe shock - hypovolemic secondary to acute blood loss anemia and cardiogenic Temporary pacemaker has been placed at 35 cm - intermittent capture likely secondary acidosis. Chest x-ray pending Currently on dopamine at 20 mics grams per kilo per minute/epinephrine at 10 mics per minute and norepinephrine at 10 g per minute to maintain MAP greater than 65 Received 6 ampules of sodium bicarbonate severe significant acidosis. We'll recheck ABG and 2 hours. On sterile water with 3 ampules of sodium bicarbonate@150 cc an hour Check venous blood gas Cycle troponins Recheck EKG in a.m. Echocardiogram is ordered Dr. Juliana Cuello - consultation Check lipid panel Noted he Received aspirin 300mg per rectum and heparin bolus in ED. Not a candidate for anticoagulation or aspirin secondary to bleeding Resp: Acute respiratory failure secondary to AMS PRVC 24/550/0.8//70 Ventilator bundle DuoNeb therapy every 4 hours with albuterol nebs every 2 hours when necessary breakthrough Spontaneous breathing trials when clinically indicated Follow-up chest x-ray in a.m. ABG in 2 hours GI: Likely upper GI bleed Received a Protonix 80 milligram IV bolus ED currently on drip at 8 mg an hour Serial hemoglobins Upper endoscopy per Dr. Hogue : [facility] for accurate I's and O's in a critically ill patient Endo: Sliding-scale insulin with Accu-Cheks every 6 hours to maintain euglycemia/low regimen Renal: Acute kidney injury? Creatinine currently 1.9 Monitor UOP Accurate I and O Renal u/S - urine lytes and eos ordered. Heme: Acute blood loss anemia Transfuse 6 units PRBCs and 2 FFP Serial hemoglobins every 6 hours. ID: Monitor for infection MSK: PT evaluate and treat FEN: Replace electrolytes as clinically indicated Access - Utilize right IJ Cordis/right femoral central line day #1 placed / Prophylaxis - GI - Protonix drip - DVT - SCD/pharmacological prophylaxis contraindicated with upper GI bleed Critical Care: The total critical care time was 55 minutes. Time to perform other separately billable procedures was not included in the critical care time. Code Status Full code Discussed Condition With . Dr. Mccoy/ED physician. Dr. Hogue/GI Dr. JULIANA CUELLO. Care plan discussed and all questions answered Problem Qualifiers (1) ST elevation (STEMI) myocardial infarction: Qualified Code: I21.3 - ST elevation myocardial infarction (STEMI), unspecified artery Julián Torres MD September 03, 2016 15:49
[2016-09-03] MEDS ORDERED: SODIUM BICARBONATE 8.4% INJ 50 MEQ/50 ML SYR IV PUSH ONE (16:00)
[2016-09-03] MEDS ORDERED: DOPamine INJ 1,600 MG in DEXTROSE 5% IN WATER INJ 240 ML IV SCH ×2 (16:00)
[2016-09-03] MEDS: DOCUSATE SODIUM 100 MG/10 ML UDC G-TUBE SCH (16:00)
[2016-09-03] MEDS ORDERED: SODIUM CHLOR 0.9% 1000 ML INJ 1,000 ML IV SCH (16:00)
[2016-09-03] MEDS ORDERED: SODIUM BICARBONATE 8.4% INJ 50 ML ONE (16:16)
--- NOTE | 2016-09-03 16:54 | MB ---
cc: HAROLDO ANDREWS M.D. DATE OF CONSULTATION 09/03/2016 REASON FOR CONSULTATION Inferior ST-elevation myocardial infarction. HISTORY OF PRESENT ILLNESS History is obtained from the patient's as well as the emergency room physician as the patient is intubated and sedated. He is a 71-year-old white male with no major past medical history who presented to the emergency room with severe shortness of breath and severe generalized weakness. The patient's states he has been feeling very weak for the last several days. He has had no definite complaints of chest pain, syncope, near-syncope, palpitations, although today he became severely short of breath. When emergency services arrived to his house, he was found to be near-syncopal with severe bradycardia in the 30s. CPR was performed for less than a minute. Because of worsening mental status and increasing respiratory distress he was intubated and placed on a mechanical ventilation. In the emergency department EKG showed evidence for acute inferior ST-elevation myocardial infarction. He was taken to the cardiac catheterization laboratory but laboratory data returned showing severe anemia and he was moved back to the emergency room area for further hemodynamic resuscitation. The patient's states he may have had been having black stools here the last 3-4 days and thinks he may have had problems with peptic ulcer disease of few years ago. PAST MEDICAL HISTORY As above. PAST SURGICAL HISTORY None according to the patient's . MEDICATIONS At home, none. ALLERGIES NO KNOWN DRUG ALLERGIES. FAMILY HISTORY The patient's father from myocardial infarction at age 69. SOCIAL HISTORY The patient is a nonsmoker. There is no history of alcohol abuse. REVIEW OF SYSTEMS Currently unobtainable. PHYSICAL EXAMINATION VITAL SIGNS: On physical examination his blood pressure 90/60 with a pulse of 80, respirations 12. GENERAL: In general he is a well-developed, well-nourished white male currently intubated and sedated. HEENT: on HEENT examination jugular venous pressure is hard to assess. Carotid pulses are 2+ bilaterally and without definite bruits. CHEST: Examination of the chest reveals clear lung yee anteriorly. CARDIOVASCULAR: On cardiac examination he has a regular rhythm and rate without definite S3-S4 or murmur. ABDOMEN: On abdominal examination he has a soft abdomen. Bowel sounds are present. There is no definite hepatosplenomegaly. EXTREMITIES: Examination of extremities reveals no clubbing, cyanosis or edema. EKG shows sinus bradycardia, complete heart block, inferior ST elevation with reciprocal changes consistent with acute injury pattern. IMAGING A chest x-ray shows no acute disease. LABORATORY DATA Includes hemoglobin 3.4, WBC 12.9, platelets 242. Potassium 3.8, BUN 30, creatinine 1.9 . CK 408. Troponin 1.74. INR 1.1. IMPRESSION Acute inferior ST-elevation myocardial infarction, severe bradycardia and hypotension, complete heart block, severe anemia likely due to GI bleeding in this 71-year-old white male with apparently no major past medical history. At this time he remains critically ill, on dopamine pressor support, as well as transthoracic pacing support. With the backup rate turned down to 40 he still is 100% paced. His EKG suggests complete heart block. Needless to say he is not a candidate at this time for invasive cardiac evaluation with the inability to administer anti platelet and anticoagulation therapy. His blood pressures are too low for beta octaviano and VITO inhibitor therapy. RECOMMENDATIONS 1. Continue blood transfusions. 2. Although there is some jaylan procedural risk given his acute myocardial infarction would recommend endoscopic evaluation by the motorcycle racer if he continues to demonstrate active bleeding. 3. Check a 2-D echo to assess his left ventricular function. 4. Check a fasting lipid profile. MD HARRY Correa/ELSY /2:56 PM /4:39 PM CLYDE
[2016-09-03 17:14] LABS: BLOOD GAS CARBOXYHEMOGLOBIN 0.9 % (0-4); BLOOD GAS HCO3 14 mmol/L (22-26); BLOOD GAS METHEMOGLOBIN 1.2 % (0-2); BLOOD GAS O2 HGB SATURATION 98 % (90-100); BLOOD GAS OXYGEN CONTENT 10.9 Vol % (12.0-20.0); BLOOD GAS PCO2 43 mmHg (38-42); BLOOD GAS PO2 365 mmHg (61-120); BLOOD GAS TOTAL HGB 7.2 G/DL (12.0-16.0); CRITICAL VALUE YES; OXYGEN DEVICE VENTILATOR; TEMP CORR TO 98.6
[2016-09-03 17:15] LABS: DRAW SITE ART LINE; FIO2 70 %; STAT YES; VENT SETTINGS PRVC/AC
[2016-09-03] MEDS: RESP: ALBUTEROL 2.5 MG/IPRATROPIUM 0.5 MG NEB (SCH) INH ×2 (17:17→21:02)
[2016-09-03] MEDS: INSULIN NovoLIN REGULAR SUPPLEMENTAL SCALE SQ SCH (18:00)
[2016-09-03] MEDS ORDERED: ARTIFICIAL TEARS OPTH SOLN 15 ML BTL EACH EYE SCH (18:00)
--- NOTE | 2016-09-03 18:13 | PD.PROCEDR ---
Central Line Procedure REASON FOR PROCEDURE Central venous access PROCEDURE PERFORMED Central line placement: Right femoral vein CONSENT Informed consent for procedure was not obtainable considered emergent due to patient's current clinical condition. The risks and benefits of the procedure were discussed to include but limited to bleeding, clot formation, infection, and even . ANESTHESIA Local injection of 1% Lidocaine DESCRIPTION OF THE PROCEDURE The patient was placed in supine, mild Trendelenburg position. The area was exposed and cleansed with ChloraPrep, times two. Large sterile drape was used to cover the patient, with the site exposed, under sterile conditions including cap, face mask, sterile gown, and sterile gloves. On single attempt, the introducer needle was inserted with negative pressure in syringe and venous flash was obtained. The guide wire was then advanced without any restriction and the needle was removed. The dilator was used without any complications. Using Seldinger technique the triple-lumen catheter was advanced over the guide wire to a depth of 20 centimeters. The guide wire was removed. All ports were aspirated with dark venous blood return and flushed easily with sterile saline. All ports were capped. Antibiotic disc was placed around central line at puncture site. The central line was secured to the skin with two interrupted 2.0 silk sutures. The area was bandaged with sterile see-through central line bandage. RADIOLOGICAL DATA Ultrasound guidance was used to locate right femoral vein. Doppler/color flow was used to confirm venous flow. COMPLICATIONS: No apparent complications ESTIMATED BLOOD LOSS: Less than 1 cc. Julián Torres MD September 03, 2016 18:13
[2016-09-03] MEDS: EPINEPHrine (1:1000) INJ 2 MG in DEXTROSE 5% IN WATER INJ 248 ML IV SCH ×4 (18:43→23:05)
[2016-09-03] MEDS: PROPOFOL 1000 MG/100 ML INJ 100 ML IV SCH ×2 (18:44→21:46)
[2016-09-03 19:45] LABS: HEMATOCRIT 27.4 % (39.0-51.0)
[2016-09-03] MEDS ORDERED: CHLORHEXIDINE 0.12% (ORAL KIT) 15 ML CUP MT SCH (20:00)
[2016-09-03 20:04] LABS: REVIEW FLAG FINAL
[2016-09-03 20:24] LABS: ALKALINE PHOSPHATASE 72 U/L (45-117); ALT (GPT) 872 U/L (12-78); ANION GAP 26 MEQ/L (5-15); AST (GOT) 1181 U/L (15-37); BICARBONATE 13.8 MEQ/L (21.0-32.0); BLOOD UREA NITROGEN 33 MG/DL (7-18); CHLORIDE 106 MEQ/L (98-107); CREATINE KINASE 3177 U/L (39-308); GLOMERULAR FILTRATION RATE 22 ML/MIN (>89); SODIUM (NA) 146 MEQ/L (136-145); TOTAL BILIRUBIN ADULT 1.4 MG/DL (0.2-1.0)
[2016-09-03 20:32] LABS: POTASSIUM 3.4 MEQ/L (3.5-5.1)
--- NOTE | 2016-09-03 20:44 | RADRPT ---
EXAM DATE/TIME: 09/03/2016 19:54 [place] COMPARISON: CHEST SINGLE AP, September 03, 2016, 12:41. INDICATIONS : Transcutaneous pacemaker placement. Status post intubation. MEDICAL HISTORY : Unobtainable. SURGICAL HISTORY : Unobtainable. ENCOUNTER: Subsequent ACUITY: 1 day PAIN SCORE: Non-responsive. LOCATION: Bilateral chest FINDINGS: A single AP supine portable view of the chest was obtained and demonstrates interval intubation with the endotracheal tube tip approximately 5 cm above the nasra. A nasogastric tube is been placed and is seen coursing through the esophagus and into the stomach. There has been placement of a right inte rnal jugular central venous line with the tip projected over the right atrium. There is no pneumothor ax. The heart size is within normal limits. There are no confluent infiltrates or effusions. CONCLUSION: 1. Interval intubation and placement of nasogastric tube. 2. Placement of right internal jugular central venous line with no pneumothorax. Carlo Robertson MD on September 03, 2016 at 20:38 Board Certified Radiologist. This report was verified electronically.
[2016-09-03] MEDS ORDERED: SODIUM CHLORIDE 0.9% FLUSH 10 ML FLUSH IV FLUSH SCH (21:00)
[2016-09-03 21:09] LABS: CKMB 127.1 NG/ML (0.5-3.6)
[2016-09-03] MEDS: SODIUM BICARBONATE 8.4% INJ 150 MEQ in WATER STERILE FOR INJ 850 ML IV SCH ×2 (22:40→23:06)
--- NOTE | 2016-09-03 22:52 | RADRPT ---
EXAM DATE/TIME: 09/03/2016 21:42 [place] COMPARISON: No previous studies available for comparison. INDICATIONS : Increased BUN/Creatinine. MEDICAL HISTORY : Myocardial infarction. Hemorrhagic gastritis. SURGICAL HISTORY : Cardiac catheterization. ENCOUNTER: Initial ACUITY: 1 day PAIN SCORE: Nonresponsive. LOCATION: Bilateral flank MEASUREMENTS: RIGHT KIDNEY: 12.5 x 6.2 x 5.7 cm LEFT KIDNEY: 12.1 x 5.2 x 5.1 cm FINDINGS: RIGHT KIDNEY: Renal cortex is normal in thickness. There is mild increased echogenicity.. No hydronephrosis, stone , or mass. LEFT KIDNEY: Renal cortex is normal in thickness. There is mild increased echogenicity. No hydronephrosis, stone, or mass. BLADDER: A Arias catheter is present. CONCLUSION: 1. No evidence of obstruction. 2. The kidneys are mildly increased echogenicity most consistent with medical renal disease. 3. Arias catheter in the bladder. Carlo Robertson MD on September 03, 2016 at 22:50 Board Certified Radiologist. This report was verified electronically.
[2016-09-04] VITALS: BP 119/86; PULSE 109; RESP 32; TEMP 101.1; O2SAT 83
[2016-09-04] MEDS: INSULIN NovoLIN REGULAR SUPPLEMENTAL SCALE SQ SCH
[2016-09-04 00:10] VITALS: O2SAT 100
[2016-09-04 00:26] LABS: REVIEW FLAG FINAL
[2016-09-04 02:00] VITALS: PULSE 103
[2016-09-04] MEDS ORDERED: SODIUM BICARBONATE 8.4% INJ 50 MEQ/50 ML SYR IV PUSH ONE ×2 (02:00→02:15)
[2016-09-04] MEDS ORDERED: NOREPINEPHRINE 4 MG/D5W 250 ML IV SCH (02:45)
[2016-09-04 03:41] LABS: BLOOD GAS BASE EXCESS -10.2 mmol/L (-2-2); BLOOD GAS CARBOXYHEMOGLOBIN 1.8 % (0-4); BLOOD GAS HCO3 14 mmol/L (22-26); BLOOD GAS METHEMOGLOBIN 1.9 % (0-2); BLOOD GAS O2 HGB SATURATION 96 % (90-100); BLOOD GAS OXYGEN CONTENT 11.7 Vol % (12.0-20.0); BLOOD GAS PCO2 24 mmHg (38-42); BLOOD GAS PO2 281 mmHg (61-120); BLOOD GAS TOTAL HGB 8.1 G/DL (12.0-16.0); CRITICAL VALUE YES
[2016-09-04 03:42] LABS: DRAW SITE ART LINE; FIO2 70 %; OXYGEN DEVICE VENTILATOR; STAT YES
[2016-09-04 03:43] LABS: VENT SETTINGS PRVC
[2016-09-04 04:00] VITALS: BP 49/42; PULSE 99; RESP 36; TEMP 101.6; O2SAT 69
[2016-09-04] MEDS ORDERED: VASOPRESSIN 40 U/100 ML D5W Titrate, Post Cardiac Surgery IV SCH ×2 (04:00)
[2016-09-04] MEDS: DOCUSATE SODIUM 100 MG/10 ML UDC G-TUBE SCH (04:00)
[2016-09-04] MEDS ORDERED: CHLORHEXIDINE GLUCONATE 2 % 1 PACK (2 CLOTHS) TOP SCH (04:00)
[2016-09-04 04:30] VITALS: O2SAT 0
[2016-09-04] MEDS: RESP: ALBUTEROL 2.5 MG/IPRATROPIUM 0.5 MG NEB (SCH) INH (04:45)
[2016-09-04] MEDS ORDERED: MORPHINE SULFATE 8 MG/ML INJ IV PUSH ONE (05:45)
[2016-09-04] MEDS ORDERED: LORazepam 2 MG/ML VIAL IM ONE (05:45)
[2016-09-04 06:00] VITALS: PULSE 9
--- NOTE | 2016-09-04 06:52 | HHI.DS ---
Summary Note Date of : September 04, 2016 Time Of : 06:05 Admission Date September 03, 2016 at 13:38 Admitting Diagnosis severe symptomatic GI bleed, STEMI, bradycardia Diagnosis at Time of : (1) Acute kidney injury ICD Code: N17.9 Diagnosis: Principal (2) Hyperglycemia ICD Code: R73.9 Diagnosis: Principal (3) Peptic ulcer disease ICD Code: K27.9 Diagnosis: Principal (4) Acute blood loss anemia ICD Code: D62 Diagnosis: Principal (5) Cardiogenic shock ICD Code: R57.0 Diagnosis: Principal (6) Hypovolemic shock ICD Code: R57.1 Diagnosis: Principal (7) Lactic acidosis ICD Code: E87.2 Diagnosis: Principal (8) ST elevation (STEMI) myocardial infarction ICD Code: I21.3 Diagnosis: Principal (9) GI bleed requiring more than 4 units of blood in 24 hours, ICU, or surgery ICD Code: K92.2 Diagnosis: Principal (10) Bradycardia ICD Code: R00.1 Diagnosis: Principal Procedures Placement of temporary pacemaker - VVI Brief History 71-year-old male. Date of admission 09/03/2016. Past medical history includes peptic ulcer disease. No information was obtained from at bedside. According to , patient has been taking 3 aspirin daily Ultram for arthritis/abdominal pain. He is also taking Zantac for indigestion he possibly might have a prior history of peptic ulcer disease in the past but she is not certain. Regardless. He showed 3-4 day history of weakness. Today patient was walking outside when he was pale fell over. EMS was called. Upon arrival patient was pulseless and PEA arrest with CPR 30 minutes. Intubated with 7.0 ET tube her airway protection due to unresponsiveness. Eventually the patient became unresponsive and needed to be restrained. Upon arrival to [place] noted to have ST elevation in 2, 3 and aVL with physical changes in 1 and aVF. Patient was given 3 mg aspirin MT and heparin bolus. STEMI alert was called and patient taken back to [facility] with Dr. Ghosh. Patient is placed on dopamine with doses of phenylephrine intermittently. Upon arrival, patient was hypotensive and bradycardic. The patient was started on epinephrine. Patient received multiple doses epinephrine and actually coded again due to PEA for 30 seconds. Stat labs revealed hemoglobin 3.4. Creatinine 1.9 Patient was taken back to ER for stabilization. Received [address] chest abdomen pelvis revealed no acute vascular dissection. Stool grossly guaiac positive. GI was consulted Pacemaker is been placed with intermittent capture likely due to acidosis. Transfuse 60s PRBCs, 2 FFP. GI plans for upper endoscopy. On Protonix drip at 8 mg an hour after 80 milligram IV bolus CBC/BMP: 09/04/16 0005 09/03/16 1924 Significant Findings Laboratory Tests Test 09/03/16 09/03/16 09/03/16 09/03/16 12:48 13:18 15:14 17:08 White Blood Count 12.9 TH/MM3 (4.0-11.0) Red Blood Count 1.35 MIL/MM3 (4.50-5.90) Hemoglobin 3.4 GM/DL 3.4 GM/DL (13.0-17.0) (13.0-17.0) Hematocrit 12.2 % 12.9 % (39.0-51.0) (39.0-51.0) Mean Corpuscular Hemoglobin 25.6 PG (27.0-34.0) Mean Corpuscular Hemoglobin 28.3 % Concent (32.0-36.0) Red Cell Distribution Width 18.3 % (11.6-17.2) Neutrophils (%) (Auto) 72.6 % (16.0-70.0) Neutrophils # (Auto) 9.3 TH/MM3 (1.8-7.7) Neutrophils % (Manual) 72 % (16-70) Neutrophils # (Manual) 10.1 TH/MM3 (1.8-7.7) Myelocytes 2 % (0-0) Nucleated Red Blood Cells 4 /100 WBC (0-0) [place] Cells 1+ (NORMAL) Prothrombin Time 12.7 SEC (9.8-11.6) Activated Partial 41.4 SEC Thromboplast Time (24.3-30.1) Bedside Chloride 112 MMOL/L (98-109) Bedside Blood Urea Nitrogen 30 MG/DL (8-26) Bedside Creatinine 1.9 MG/DL (0.8-1.3) Bedside Glucose 303 MG/DL (60-95) Calcium Level 7.9 MG/DL (8.5-10.1) Magnesium Level 2.9 MG/DL (1.5-2.5) Total Creatine Kinase 408 U/L (39-308) Creatine Kinase MB 7.9 NG/ML (0.5-3.6) Troponin I 1.74 NG/ML (0.02-0.05) B-Type Natriuretic Peptide 395 PG/ML (0-100) Blood Gas HCO3 5 mmol/L 14 mmol/L (22-26) (22-26) Blood Gas Base Excess -25.4 mmol/L -14.0 mmol/L (-2-2) (-2-2) Arterial Blood pH 6.87 7.13 (7.380-7.420) (7.380-7.420) Arterial Blood Partial 28 mmHg (38-42) 43 mmHg (38-42) Pressure CO2 Arterial Blood Partial 493 mmHG 365 mmHg Pressure O2 (61-120) (61-120) Arterial Blood Oxygen Content 11.9 Vol % 10.9 Vol % (12.0-20.0) (12.0-20.0) Blood Gas Hemoglobin 7.7 G/DL 7.2 G/DL (12.0-16.0) (12.0-16.0) Test 09/03/16 09/04/16 09/04/16 19:24 00:05 03:22 Hemoglobin 9.2 GM/DL 9.9 GM/DL (13.0-17.0) (13.0-17.0) Hematocrit 27.4 % 31.0 % (39.0-51.0) (39.0-51.0) Fibrinogen 146 mg/dL (227-377) Sodium Level 146 MEQ/L (136-145) Potassium Level 3.4 MEQ/L (3.5-5.1) Carbon Dioxide Level 13.8 MEQ/L (21.0-32.0) Anion Gap 26 MEQ/L (5-15) Blood Urea Nitrogen 33 MG/DL (7-18) Creatinine 2.87 MG/DL (0.60-1.30) Estimat Glomerular Filtration 22 ML/MIN (>89) Rate Random Glucose 253 MG/DL (74-106) Lactic Acid Level 14.4 mmol/L (0.4-2.0) Calcium Level 7.6 MG/DL (8.5-10.1) Phosphorus Level 9.6 MG/DL (2.5-4.9) Total Bilirubin 1.4 MG/DL (0.2-1.0) Aspartate Amino Transf 1181 U/L (AST/SGOT) (15-37) Alanine Aminotransferase 872 U/L (12-78) (ALT/SGPT) Total Creatine Kinase 3177 U/L (39-308) Creatine Kinase MB 127.1 NG/ML (0.5-3.6) Troponin I 16.50 NG/ML (0.02-0.05) Total Protein 5.4 GM/DL (6.4-8.2) Albumin 2.8 GM/DL (3.4-5.0) Blood Gas HCO3 14 mmol/L (22-26) Blood Gas Base Excess -10.2 mmol/L (-2-2) Arterial Blood Partial 24 mmHg (38-42) Pressure CO2 Arterial Blood Partial 281 mmHg Pressure O2 (61-120) Arterial Blood Oxygen Content 11.7 Vol % (12.0-20.0) Blood Gas Hemoglobin 8.1 G/DL (12.0-16.0) Imaging Last Impressions Head CT 09/03/16 0000 Signed Impressions: Service Date/Time: Saturday, September 03, 2016 14:18 - CONCLUSION: No acute intracranial findings Dion Byers MD Chest X-Ray 09/03/16 0000 Signed Impressions: Service Date/Time: Saturday, September 03, 2016 12:41 - CONCLUSION: Normal examination. Guilherme Johnson Jr., MD Chest CT 09/03/16 0000 Signed Impressions: Service Date/Time: Saturday, September 03, 2016 14:22 - CONCLUSION: No acute CT findings in the chest Dion Byers MD Abdomen/Pelvis CT 09/03/16 0000 Signed Impressions: Service Date/Time: Saturday, September 03, 2016 14:22 - CONCLUSION: No acute CT findings in the abdomen or pelvis. Small liver lesions likely benign. Dion Byers MD Hospital Course Neuro/Psych: Patient is currently on propofol/fentanyl drips for sedation/analgesia while intubated Goal of RA SS -2 Daily sedation vacation when appropriate Patient is currently sponges and moving upper and lower extremities CV: Acute inferior STEMI Severe shock - hypovolemic secondary to acute blood loss anemia and cardiogenic Temporary pacemaker has been placed at 35 cm - intermittent capture likely secondary acidosis. Chest x-ray pending Currently on dopamine at 20 mics grams per kilo per minute/epinephrine at 10 mics per minute and norepinephrine at 10 g per minute to maintain MAP greater than 65 Received 6 ampules of sodium bicarbonate severe significant acidosis. We'll recheck ABG and 2 hours. On sterile water with 3 ampules of sodium bicarbonate@150 cc an hour Check venous blood gas Cycle troponins Recheck EKG in a.m. Echocardiogram is ordered Dr. Juliana Cuello - consultation Check lipid panel Noted he Received aspirin 300mg per rectum and heparin bolus in ED. Not a candidate for anticoagulation or aspirin secondary to bleeding Resp: Acute respiratory failure secondary to AMS PRVC 24/550/0.8/ Ventilator bundle DuoNeb therapy every 4 hours with albuterol nebs every 2 hours when necessary breakthrough Spontaneous breathing trials when clinically indicated Follow-up chest x-ray in a.m. ABG in 2 hours GI: Likely upper GI bleed Received a Protonix 80 milligram IV bolus ED currently on drip at 8 mg an hour Serial hemoglobins Upper endoscopy per Dr. Hogue : Arias place for accurate I's and O's in a critically ill patient Endo: Sliding-scale insulin with Accu-Cheks every 6 hours to maintain euglycemia/low regimen Renal: Acute kidney injury? Creatinine currently 1.9 Monitor UOP Accurate I and O Renal u/S - urine lytes and eos ordered. Heme: Acute blood loss anemia Transfuse 6 units PRBCs and 2 FFP Serial hemoglobins every 6 hours. ID: Monitor for infection MSK: PT evaluate and treat FEN: Replace electrolytes as clinically indicated Access - Utilize right IJ Cordis/right femoral central line day #1 placed / Prophylaxis - GI - Protonix drip - DVT - SCD/pharmacological prophylaxis contraindicated with upper GI bleed Critical Care: The total critical care time was 55 minutes. Time to perform other separately billable procedures was not included in the critical care time. Code Status Full code Discussed Condition With . Dr. Mccoy/ED physician. Dr. Hogue/GI Dr. JULIANA CUELLO. Care plan discussed and all questions answered Addendum Overnight, patient increased vasopressor course. Hemoglobin stable. and family at bedside discussed with Dr. Morris. Requests discontinuation of vasopressor. Was requesting withdrawal of care. Patient passed at [id number] Julián Abdullahi MD September 04, 2016 06:52
--- NOTE | 2016-09-04 17:45 | EKG ---
Date Performed: 09/03/2016 Time Performed: 18:17:54 PTAGE: 71 years EKG: ELECTRONIC VENTRICULAR PACEMAKER ST ELEVATION, CONSIDER INFERIOR INJURY NO PREVIOUS TRACING DOCTOR: Shay Domínguez Interpretating Date/Time 09/04/2016 17:44:49
== END 2016-09-04 06:05 | disposition expired | DRG 377 ==
LOC: NEPE 12:38 → NEDA 13:38 → UNDOADMOB 13:38 → NEDA 13:38 → HIME 15:50
PROVIDERS: ADMIT Internal Medicine Critical Care Medicine; ATTEND Internal Medicine Critical Care Medicine
PROC: 02H633Z Insertion of Infusion Device into Right Atrium, Percutaneous Approach (ICD-10-PCS; 2016-09-03)
PROC: 30233K1 Transfusion of Nonautologous Frozen Plasma into Peripheral Vein, Percutaneous Approach (ICD-10-PCS; 2016-09-03)
PROC: 5A1223Z Performance of Cardiac Pacing, Continuous (ICD-10-PCS; 2016-09-03)
PROC: 5A1935Z Respiratory Ventilation, Less than 24 Consecutive Hours (ICD-10-PCS; 2016-09-03)
PROC: 3E1G78Z Irrigation of Upper GI using Irrigating Substance, Via Natural or Artificial Opening (ICD-10-PCS; 2016-09-03)
PROC: 06HM33Z Insertion of Infusion Device into Right Femoral Vein, Percutaneous Approach (ICD-10-PCS; 2016-09-03)
PROC: 0DJ08ZZ Inspection of Upper Intestinal Tract, Via Natural or Artificial Opening Endoscopic (ICD-10-PCS; 2016-09-03)
PROC: 30233N1 Transfusion of Nonautologous Red Blood Cells into Peripheral Vein, Percutaneous Approach (ICD-10-PCS; principal; 2016-09-03 18:30)
DX: K29.71 Gastritis, unspecified, with bleeding (principal); I21.19 ST elevation (STEMI) myocardial infarction involving other coronary artery of inferior wall; I46.9 Cardiac arrest, cause unspecified; J96.00 Acute respiratory failure, unspecified whether with hypoxia or hypercapnia; R57.1 Hypovolemic shock; R57.0 Cardiogenic shock; E87.2 Acidosis; D62 Acute posthemorrhagic anemia; I44.2 Atrioventricular block, complete; N17.9 Acute kidney failure, unspecified; R00.1 Bradycardia, unspecified; Z87.11 Personal history of peptic ulcer disease; R73.9 Hyperglycemia, unspecified; Z79.82 Long term (current) use of aspirin; Z78.1 Physical restraint status; Z53.8 Procedure and treatment not carried out for other reasons
CPT/HCPCS: 33210; 36430; 36556; 36620; 70450; 71010; 71260; 74177; 76775; 76937; 80053; 82310; 82435; 82550; 82552; 82565; 82805; 82947; 82948; 83605; 83735; 83880; 84100; 84132; 84295; 84484; 84520; 85007; 85014; 85018; 85027; 85384; 85610; 85730; 86850; 86900; 86901; 86920; 86927; 87641; 93005; 94002; 94003; 94640; 94664; 96374; 96375; 99292; C9113; J0171; J0461; J1265; J1644; J2250; J2370; J3010; J3246; J7030; J7060; P9016; P9017; Q9967